=== PATIENT | male | born 1980 | race Caucasian/White ===

== ENCOUNTER 2020-12-23 11:16 | Emergency (ER) | payer OTHER, SELFPAY ==
--- NOTE | 2020-12-23 11:17 | ED.SKABFB ---
HPI - Skin/Abscess/Foreign Bdy General Chief complaint: Skin/Abscess/Foreign Body Stated complaint: Tick bite Time Seen by Provider: 12/23/20 11:30 Source: patient and RN notes reviewed Mode of arrival: ambulatory Limitations: no limitations History of Present Illness HPI narrative: 40-year-old male presents concern for tick bite to his right thigh. [place], Sunday noticed a tick and pulled it off his leg. Reports today he noticed the area was red, slightly tender. Denies any intervention. He denies generalized symptoms such as fever, fatigue, body aches. Denies any drainage from the area. MD complaint: insect bite/sting Related Data Allergies Allergy/AdvReac Type Severity Reaction Status Date / Time No Known Allergies Allergy Verified 12/23/20 11:37 Review of Systems Review of Systems: Narrative: CONSTITUTIONAL: Denies malaise, chills, sweats, or fever. CARDIOVASCULAR: Denies chest pain, palpitations, or edema. RESPIRATORY: Denies cough or dyspnea. GASTROINTESTINAL: Denies abdominal pain, nausea, vomiting SKIN: Reports red, tender area from a tick bite on his right leg MUSCULOSKELETAL: Denies myalgia. NEUROLOGIC: Denies numbness, weakness, or headache. All systems reviewed & are unremarkable except as noted in HPI and below PMFSH Comments At time of signature, agree with nursing past medical, surgical, social and family history. There is no relevant family history pertinent to the presenting complaint Exam Narrative: Exam Narrative: GENERAL: Well-appearing, well-nourished, and in no acute distress. HEAD: Normocephalic, atraumatic. EYES: PERRLA, conjunctivae clear, and EOMI. ENT: Mucous membranes moist. Oropharynx without edema, erythema or lesions. NECK: Supple. No lymphadenopathy CHEST: Clear to auscultation. No respiratory distress. HEART: Regular rate and rhythm. SKIN: Warm, dry. 1.5cm area of erythema, induration with central scab, no foreign body visible or palpable. No surrounding erythema, edema, induration. No drainage noted. NEURO: Alert and oriented x3. PSYCH: Normal mood and affect Course Course Emergency Course: Discussed with patient care of insect bite without antibiotic, using warm compresses. Instructed patient if area worsens, does not improve in the next 24 to 48 hours he should fill the antibiotic and take as directed. Discussed Lyme disease, symptoms of Lyme disease and when to follow-up with primary care provider for further evaluation. Patient is aware of diagnosis, understands and agrees to treatment plan. Anticipatory guidance given. Patient agrees to follow-up as directed and is aware of reasons to seek care at the emergency department. Portions of this record may have been created with voice recognition software Vital Signs Vital signs: Vital Signs Temperature 98.5 F 12/23/20 11:24 Pulse Rate 73 12/23/20 11:24 Respiratory Rate 20 12/23/20 11:24 Blood Pressure 135/82 12/23/20 11:24 Pulse Oximetry 98 12/23/20 11:24 Temperature 98.5 F 12/23/20 11:24 Pulse Rate 73 12/23/20 11:24 Respiratory Rate 20 12/23/20 11:24 Blood Pressure 135/82 12/23/20 11:24 Pulse Oximetry 98 12/23/20 11:24 Reviewed. MDM - Skin/Abscess/Foreign Bdy MDM Narrative Medical decision making narrative: Does not appear at this time to be erythema multiforme, bullous, SJS, TEN; no evidence at this time to suggest RMSF, endocarditis or Lyme disease; patient looks well, nontoxic and is tolerating oral intake; no neurologic signs or symptoms; no headache, photophobia or neck pain; afebrile; appropriate for initial outpatient treatment; discussed the importance of follow-up, patient agrees; question, viral exanthema, contact dermatitis, allergic dermatitis, eczema, urticaria, insect bite. No soft palate or uvula edema, no tongue, lip edema or other mucosal involvement, no respiratory compromise, no stridor, no wheezing, no wheezing, no history of syncope, no hypo
[2020-12-23 11:24] VITALS: BP 135/82; PULSE 73; RESP 20; TEMP 36.9; O2SAT 98
== END 2020-12-23 11:46 | disposition home or self-care (01) ==
PROVIDERS: Emergency Provider Nurse Practitioner; PCP Internal Medicine
DX: S70.361A Insect bite (nonvenomous), right thigh, initial encounter (principal); W57.XXXA Bitten or stung by nonvenomous insect and other nonvenomous arthropods, initial encounter; J45.909 Unspecified asthma, uncomplicated
CPT/HCPCS: 99203; G0463

== ENCOUNTER 2022-07-18 08:17 | Emergency (ER) | payer OTHER, SELFPAY ==
[2022-07-18 08:22] VITALS: BP 139/86; PULSE 74; RESP 20; TEMP 36.6; O2SAT 98
--- NOTE | 2022-07-18 08:58 | ED.URI ---
HPI - URI/Sore Throat General Chief Complaint: Upper Respiratory Infection Stated Complaint: Chest Pain/Asthma Time Seen by Provider: 07/18/22 08:55 Source: patient and RN notes reviewed Mode of arrival: ambulatory Limitations: no limitations History of Present Illness HPI Narrative: 41-year-old male presents with concern for one-week history of wheezing and shortness of breath. He denies cold symptoms, fever, body aches, chills, sweats. He reports he had asthma as a child, he has not had any episodes until recently as an adult. 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 He has not taken any [id number] medications for his symptoms. MD elicited complaint: cough Related Data Allergies Allergy/AdvReac Type Severity Reaction Status Date / Time No Known Allergies Allergy Verified 07/18/22 08:35 Review of Systems Review of Systems: CONSTITUTIONAL: Denies malaise, chills, sweats, or fever. EYES: Denies visual changes, redness, or discharge. ENT: Denies rhinorrhea, congestion, sinus pain, otalgia and sore throat. CARDIOVASCULAR: Denies chest pain, palpitations, or edema. RESPIRATORY: Reports cough, wheezing, dyspnea. GASTROINTESTINAL: Denies abdominal pain, nausea, vomiting, diarrhea SKIN: Denies rash or itching. MUSCULOSKELETAL: Denies myalgia. NEUROLOGIC: Denies headache. All systems reviewed & are unremarkable except as noted in HPI and below PMFSH Comments At time of signature, agree with nursing past medical, surgical, social and family history. There is no relevant family history pertinent to the presenting complaint Exam Narrative: GENERAL: Well-appearing, well-nourished, and in no acute distress. HEAD: Normocephalic EYES: PERRLA, conjunctivae clear ENT: Nares clear, no discharge. Mucous membranes moist. TM pearly storm with sharp light reflex bilaterally; no tragal tenderness. Oropharynx not erythematous without lesions. Tonsils not enlarged and without exudate, no drooling, no hoarseness, no trismus, uvula midline. NECK: Supple. No lymphadenopathy CHEST: Expiratory wheeze throughout, otherwise Clear to auscultation, breath sounds equal. No rhonchi, rales, or stridor. No respiratory distress, speaks in full sentences. HEART: Regular rate and rhythm. No murmur heard. SKIN: Warm, dry, no rash. NEURO: Alert and oriented x3. PSYCH: Normal mood and affect Course Course Emergency Course: Patient is aware of diagnosis, understands and agrees to treatment plan. Anticipatory guidance given. Patient agrees to follow-up as directed and is aware of reasons to seek care at the emergency department. Portions of this record may have been created with voice recognition software Level of Care: Express Care Visit Vital Signs Vital signs: Vital Signs Temperature 97.9 F 07/18/22 08:22 Pulse Rate 74 07/18/22 08:22 Respiratory Rate 20 07/18/22 08:22 Blood Pressure 139/86 07/18/22 08:22 Pulse Oximetry 98 07/18/22 08:22 Oxygen Delivery Room Air 07/18/22 08:22 Temperature 97.9 F 07/18/22 08:22 Pulse Rate 74 07/18/22 08:22 Respiratory Rate 20 07/18/22 08:22 Blood Pressure 139/86 07/18/22 08:22 Pulse Oximetry 98 07/18/22 08:22 Oxygen Delivery Room Air 07/18/22 08:22 Reviewed. MDM - URI/Sore Throat MDM Narrative Medical decision making narrative: Differential diagnosis considered: Asthma exacerbation, COPD, Soriano virus, strep pharyngitis, allergic rhinitis, upper respiratory tract infection, sinusitis, rhinosinusitis, nasopharyngitis. viral pharyngitis, otitis media, otitis externa, pneumonia, bronchitis, viral cough syndrome, viral syndrome, and influenza. Exam findings show no acute concerns or changes; patient is non-toxic appearing and is in no distress. Patient is appropriate for outpatient treatment and follow-up. Lab Data Attestation: I reviewed the patient's lab results. Critical Care Time Cr
== END 2022-07-18 09:05 | disposition home or self-care (01) ==
PROVIDERS: Emergency Provider Nurse Practitioner
DX: R06.2 Wheezing (principal); R05.9 Cough, unspecified
CPT/HCPCS: 99213; G0463

== ENCOUNTER 2025-06-26 13:19 | Emergency (ER) | payer OTHER, SELFPAY ==
--- OUTSIDE RECORDS SUMMARY | 2015-05-24 09:00 | XMS_ITS | Continuity of Care Document ---
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 Name Role Phone Jairo Verdugo MD Unavailable Unavailable Allergies, Adverse Reactions, Alerts Substance Reaction Status Criticality No Known Allergies Active No Inform ation Procedures Procedure Date Office/outpatient Visit, [facility] Advance Directives Directive Yes / No Effective Date File Name No Information Encounters Encounter Description Practice Location Reason(s) For Visit Diagnoses Date Provider Providers Copied on Encounter Office/outpat ient Visit, [facility], [address], [place], [place], [id number], [place] tel:[phone] [address] Professional blurry vision (chief complaint) Punctate keratitis, left eye 0 [phone] Lucina Gill. [address], [address], [place], [place], [address], [place]. tel:[phone] Family History Family Member Type Diagnosis Age At Onset No Information Payers Payer name Insurance type Covered democrat ID Authorolia jeb(s) Woody Huber (RIA) CI [id number] Social History Type Description Quantity Date Captured Comments Alcohol Use Details No Caffeine Use Details Tobacco Use Status No Information Smoking Status Never smoker Non-Smoking Tobacco Use Details : No Details Available : No Details Available Sex Male Chief Complaint And Reason For Visit From encounter dated '05/24/2015 15:00'. blurry vision (chief complaint). Description: The 34 year old male presents for a WIE. Patient states last night his young son poked him in OS. Patienty states vision is blurry and doubled OS. Reason For Referral Reason For Referral No Information History Of Present Illness Encounter Date Complaint History Of Prese nt Illness blurry vision The 34 year old male presents for a WIE. Patient states last night his young son poked him in OS. Patienty states vision is blurry and doubled OS. Functional Status Date Functional Assessmen t No Information Instructions Date Instruction Additional Infor mation as needed Related to Punct ate keratitis, left eye Impression/Plan - Di scussed dx in detail with patient. Patient understands SPK will resolve on its own. Start artificial tears prn for comfort. Return to clinic as needed. Related to Punctate keratitis, left eye Follow up - as needed Related to Punctate keratitis, left eye Assessments Type Assessment Date assessment Punctate keratitis, left eye May impression Punctate keratitis, left eye: H1 6.142 Patient Care Teams Name Effective Dates (start - stop) Status Members No Information
--- OUTSIDE RECORDS SUMMARY | 2015-05-24 09:00 | XMS_ITS | Continuity of Care Document ---
Author Organization [facility] Address [address] [place] [address] Phone Care Team Providers Care Import Coordinator Name Role Phone Jairo Verdugo MD Unavailable Unavailable Allergies, Adverse Reactions, Alerts Substance Reaction Status Criticality No Known Allergies Active No Inform ation Procedures Procedure Date Office/outpatient Visit, [facility] Advance Directives Directive Yes / No Effective Date File Name No Information Encounters Encounter Description Practice Location Reason(s) For Visit Diagnoses Date Provider Providers Copied on Encounter Office/outpat ient Visit, [facility], [address], [place], [place], [id number], [place] tel:[phone] [address] Professional blurry vision (chief complaint) Punctate keratitis, left eye 0 [phone] Lucina Gill. [address], [address], [place], [place], [id number], [place]. tel:[phone] Family History Family Member Type Diagnosis Age At Onset No Information Payers Payer name Insurance type Covered alliance party ID Authorolia jeb(s) Woody Huber (RIA) CI [id number] Social History Type Description Quantity Date Captured [...]
[2025-06-26 13:24] VITALS: BP 133/74; PULSE 88; RESP 18; TEMP 36.9; O2SAT 96
--- OUTSIDE RECORDS SUMMARY | 2025-06-26 13:24 | XMS_ITS | Clinical Summary ---
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 Pt not on meds that could cause. Has albuterol inhaler which can help decrease If continues to be elevated, will consider neb breathing treatment in clinic 20min to help correct, vs kayexalate. EKG in clinic if remains elevated. Class 1 obesity due to exces s calories without serious comorbidity with body mass index (BMI) of 34.0 to 34.9 in adult 07/29/2024 Assessment & Plan (08/29/2024 6:09 PM AERONAUTICAL ENGINEERING TEACHER): Body mass index is 35.36 kg/m . CLASSIFICATION Class 1 obesity: 30 to less than 35 Wt Readings from Last 3 Encounters: 08/27/24 107 kg (236 lb) 07/29/24 104.8 kg (231 lb) 07/10/24 98 kg (216 lb) - Etiology: Lifestyle and diet - Medications: None Plan - Encouraged pt to continue with lifestyle modification: Diet/exercise, food tracking apps, diary to reflect on relationship with food. - Have educated patient that Mediterranean diet is widely accepted as the most balanced diet for both weight loss and sustained weight loss. Handout given. - Education given on risk associated with elevated BMI - Will set up follow up apt to discuss lifestyle modification, nutrition services, weight loss clinic, medications, CBT - Labs: CBC, CMP, TSH, A1c, lipids as needed to rule out medical causes. - Referrals today: None w - BMI Follow-up includes: nutrition counseling, exercise counseling, and education provided. Assessment & Plan (07/29/2024 11:10 AM AERONAUTICAL ENGINEERING TEACHER): Body mass index is 34.61 kg/m . CLASSIFICATION Class 1 obesity: 30 to less than 35 Wt Readings from Last 3 Encounters: 07/29/24 104.8 kg (231 lb) 07/10/24 98 kg (216 lb) 05/02/17 101.5 kg (223 lb 11.2 oz) - Etiology: Lifestyle and diet - Medications: None Plan - Encouraged pt to continue with lifestyle modification: Diet/exercise, food tracking apps, diary to reflect on relationship with food. - Have educated patient that Mediterranean diet is widely accepted as the most balanced diet for both weight loss and sustained weight loss. Handout given. - Education given on risk associated with elevated BMI - Will set up follow up apt to discuss lifestyle modification, nutrition services, weight loss clinic, medications, CBT - Labs: CBC, CMP, TSH, A1c, lipids as needed to rule out medical causes. - Referrals today: None w - BMI Follow-up includes: nutrition counseling, exercise counseling, and education provided. Annual physical exam 07/29/2024 Assessment & Plan (07/29/2024 11:23 AM AERONAUTICAL ENGINEERING TEACHER): Pt presents for Annual Health exam: Today patient is: Stable - Have discussed sig PMH, Current meds/treatments, labs, images/test, and changes made by specialists if following. - ADL's, SDoH, and Safety discussed. - Education on lifestyle modification diet, exercise, wellness with handouts given as appropriate. - Age-appropriate and annual Vaccinations discussed: Influenza and Tdap at next visit - Age approximate cancer screening discussed and referrals sent: Colon cancer screening starting make sure. - Pt has requested STI screening: No - Cessation/avoidance counseling on Tobacco/Vape/MJ/ETOH/Drugs and the health risks associated with use and benefits of quitting or never starting. Pt will think about my offer. - Basic screening labs today: CBC w/o dif , CMP , Lipid Nuno, A1c, and TSH - Will continue will annual exam. Current smoker 07/29/2024 Assessment & Plan (08/27/2024 8:46 AM AERONAUTICAL ENGINEERING TEACHER): Current daily tobacco user: 5-7 cigs daily Pack years: <10 Wanting to quit: yes, and would like to try Wellbutrin after conversation. Previous Methods/Attempts: Has tried Chantix in the past but discontinued due to irritability and nightmares. Plan - Tobacco use will be reassessed at the next regular appointment. - Quit Smoking: https://smokefree.gov/ - Smoking cessation counseling was provided: 15 minutes of smoking cessation counseling given. - Start Wellbutrin 300 mg with shared decision making. Have educated pt on side effects and directions on how to start taking. Will go slow due to bad response to Chantix. - Continue: To try and cut back, stop. - Follow up if 4 weeks. Nicotine replacement therapy (NRT) is the most commonly used family of quit smoking medications. NRT reduces withdrawal feelings by giving you a small controlled amount of nicotine?but none of the other dangerous chemicals found in cigarettes. This small amount of nicotine helps satisfy your craving for nicotine and reduces the urge to smoke. NRT can t do all the work. It can help with withdrawal and cravings. But it won t completely take away the urge to smoke. Even if you use NRT to help you stop smoking, quitting can still be hard. Combining NRT with other strategies can improve your chances of quitting and staying quit. Strategies to quit: To give yourself the best chance for success, explore other quit methods you can combine with medication. Also think about: - Developing a quit plan. Using quit programs such as SmokefreeTXT or calling a quitline. Using the [employer] yue for tips and inspiration to help you be smokefree. Prepare, Reduce creavings and Triggers, Reduce stress, Get Active, Eat Healthy - Gum, Patches, Inhaler, lozenges, nasal spray or medications like Wellbutrin, Chantix - Remind yourself of the rewards of quitting to help yourself stay on track: Fun facts Most will attempt quitting 10 to 13 times before being successful: Just because you were not successful last time does not mean this time you will not be. Keep going, start back where you left off on your quitting journy, don't go back to your daily smoking habit. 20 minutes: heart rate, blood pressure drop 12 hours: carbon monoxide in blood stream drops to normal 2 weeks-3 months: circulation, lung function improve; heart attack risk begins to drop 1-9 months: cough less, breathe easier 1 year: risk of coronary heart disease cut in half 2-5 years: risk of cancer of mouth, throat, esophagus, bladder cut in half; stroke risk is reduced to that of a nonsmoker 10 years: half as likely to from lung cancer; risk of kidney or pancreatic cancer decreases 15 years: risk of coronary heart disease same as non-smoker s risk EXTRA MONEY. Assessment & Plan (07/29/2024 11:11 AM AERONAUTICAL ENGINEERING TEACHER): Current daily tobacco user: 5-7 cigs daily Pack years: <10 Wanting to quit: yes Previous Methods/Attempts: Has tried Chantix in the past but discontinued due to irritability and nightmares. Plan - Tobacco use will be reassessed at the next regular appointment. - Quit Smoking: https://smokefree.gov/ - Smoking cessation counseling was provided: 10 minutes of smoking cessation counseling given. - Consider: Starting Wellbutrin, pt will do research and discuss with . - Continue: To try and cut back, stop. Nicotine replacement therapy (NRT) is the most commonly used family of quit smoking medications. NRT reduces withdrawal feelings by giving you a small controlled amount of nicotine?but none of the other dangerous chemicals found in cigarettes. This small amount of nicotine helps satisfy your craving for nicotine and reduces the urge to smoke. NRT can t do all the work. It can help with withdrawal and cravings. But it won t completely take away the urge to smoke. Even if you use NRT to help you stop smoking, quitting can still be hard. Combining NRT with other strategies can improve your chances of quitting and staying quit. Strategies to quit: To give yourself the best chance for success, explore other quit methods you can combine with medication. Also think about: - Developing a quit plan. Using quit programs such as SmokefreeTXT or calling a quitline. Using the [employer] yue for tips and inspiration to help you be smokefree. Prepare, Reduce creavings and Triggers, Reduce stress, Get Active, Eat Healthy - Gum, Patches, Inhaler, lozenges, nasal spray or medications like Wellbutrin, Chantix - Remind yourself of the rewards of quitting to help yourself stay on track: Fun facts Most will attempt quitting 10 to 13 times before being successful: Just because you were not successful last time does not mean this time you will not be. Keep going, start back where you left off on your quitting journy, don't go back to your daily smoking habit. 20 minutes: heart rate, blood pressure drop 12 hours: carbon monoxide in blood stream drops to normal 2 weeks-3 months: circulation, lung function improve; heart attack risk begins to drop 1-9 months: cough less, breathe easier 1 year: risk of coronary heart disease cut in half 2-5 years: risk of cancer of mouth, throat, esophagus, bladder cut in half; stroke risk is reduced to that of a nonsmoker 10 years: half as likely to from lung cancer; risk of kidney or pancreatic cancer decreases 15 years: risk of coronary heart disease same as non-smoker s risk EXTRA MONEY. Decreased libido 07/29/2024 Assessment & Plan (08/29/2024 6:19 PM AERONAUTICAL ENGINEERING TEACHER): Patient to make follow-up appointment to discuss hypogonadism and decreased energy No red flag symptoms reported CBC, CMP, lipid panel, TSH, A1c: all with in normal levels. T levels and discuss TRT at follow up visit. Assessment & Plan (07/29/2024 10:00 AM AERONAUTICAL ENGINEERING TEACHER): Patient to make follow-up appointment to discuss hypogonadism and decreased energy No red flag symptoms reported CBC, CMP, lipid panel, TSH, A1c T levels and discuss TRT at follow up visit. History of wheezing 07/29/2024 Assessment & Plan (08/27/2024 8:47 AM AERONAUTICAL ENGINEERING TEACHER): Chronic Family history of asthma, diagnosed with asthma as a kid. Triggers: Seasonal, environment, exertion in cold weather, smoking. Medications: None Plan - Will get formal PFT evaluation - Consider Symbicort based on PFTs and picture - Start Albuterol q4-6 prn - Advised stop smoking, patient to think about starting Wellbutrin - Consider starting Claritin/Zyrtec daily Assessment & Plan (07/29/2024 11:22 AM AERONAUTICAL ENGINEERING TEACHER): Chronic Family history of asthma, diagnosed with asthma as a kid. Triggers: Seasonal, environment, exertion in cold weather, smoking. Medications: None Plan - Will get formal PFT evaluation - Consider Symbicort based on PFTs and picture - Advised stop smoking, patient to think about starting Wellbutrin - Consider starting Claritin/Zyrtec daily Atopic rhinitis 01/03/2014 Overview (11/23/2016): ALLERGIC RHINITIS NOS Assessment & Plan (07/29/2024 10:01 AM AERONAUTICAL ENGINEERING TEACHER): Chronic, stable Currently Not taking daily medications Most likely related to environment and allergies and smoking Advised patient to stop smoking We will continue to follow and start medications as needed Resolved Problems Problem Noted Date Diagnosed Date Resolved Date Class 1 obesity 07/29/2024 07/29/2024 SOB (shortness of breath) on exertion 07/29/2024 07/29/2024 Immunizations Immunization Administration Dates Next Due Influenza, Unspecified 07/08/2024(Deferr ed: Patient Refused),06/06/2023(Deferred: Patient Refused) Surgical History Surgery Date Site/Laterality Comments APPENDECTOMY 04/19/2017 Laparoscopic appendectomy Medical History Medical History Date Comments Asthma Asthma Family History Medical History Relation Name Comments Other Other 2 Alive and well; Cancer Paternal Grandfather Colon cancer Paternal Grandfather Relation Name Status Comments Other 1 Alive Other 2 Paternal Grandfather Social History Tobacco Use Types Packs/Day Years Used Date Smoking Tobacco: Some Days Cigarettes 0.5 25.8 Started: 1999 Smokeless Tobacco: Current Tobacco Cessation:Ready to Q uit: Not Asked; Counseling Given: Not Answered Alcohol Use Standard Drinks/Week Comments Yes 4 (1 standard drink = 0.6 oz pur e alcohol) weekends PHQ-2 Answer Date Recorded PHQ-2 Total Score (If total score is 3 or more points, staff should administer the PHQ-9) 1 07/29/2024 PHQ-9 Answer Date Recorded PHQ-9 Total Score 7 07/29/2024 Sex and Gender Information Value Date Recorded Sex Assigned at Not on file Legal Sex Male 5:37 AM AERONAUTICAL ENGINEERING TEACHER Gender Identity Not on file Sexual Orientation Not on file Last Filed Vital Signs Vital Sign Reading Time Taken Comments Blood Pressure 118/86 09/22/2024 8:29 AM AERONAUTICAL ENGINEERING TEACHER Pulse 56 09/22/2024 8:29 AM AERONAUTICAL ENGINEERING TEACHER Temperature 36.8 C (98.3 F) 09/22/2024 8:29 AM AERONAUTICAL ENGINEERING TEACHER Respiratory Rate 18 09/22/2024 8:29 AM AERONAUTICAL ENGINEERING TEACHER Oxygen Saturation 97% 07/10/2024 9:31 AM AERONAUTICAL ENGINEERING TEACHER Inhaled Oxygen Concentration - - Weight 105.7 kg (233 lb) 09/22/2024 8:29 AM AERONAUTICAL ENGINEERING TEACHER Height 174 cm (5' 8.5) 09/22/2024 8:29 AM AERONAUTICAL ENGINEERING TEACHER Body Mass Index 34.91 09/22/2024 8:29 AM AERONAUTICAL ENGINEERING TEACHER Plan of Treatment Health Maintenance Due Date Last Done Comments Colon Cancer Screening-Colonoscopy 1979 Hepatitis C Screening 1979 DTaP/Tdap/Td Vaccine (1 - Tdap) 12/19/1990 Varicella Vaccines (1 of 2 - 13+ 2-dose series) 12/19/1992 Hepatitis B Screening 12/19/1997 Pneumococcal vaccine <65 (1 of 2 - PCV) 12/19/1998 HPV Vaccines (1 - 3-dose SCDM series) 12/19/2006 Influenza Vaccine (#1) 2025 Depression Screening 07/29/2025 07/29/2024, 07/29/20 24 Regular Well Visit/Exam 18-64 07/29/2025 07/29/2024 Insurance [facility] H[facility]/PPO Address: [facility] [address] [place] [address] Care Teams Speech Language Pathology Assistant Relationship Specialty Start Date End Date Arsh Navarro MD [address] [address] PCP - General Family Medicine 07/29/24
--- NOTE | 2025-06-26 13:59 | ED_ITS ---
HPI - Eye Problem General Chief complaint: Eye Problems Stated complaint: right eye Time Seen by Provider: 06/26/25 14:10 Source: patient, RN notes reviewed and old records reviewed Mode of arrival: ambulatory Limitations: no limitations History of Present Illness HPI Narrative: 44 year old male presents to [facility] with complaints of right eye redness which started this morning, feelings like foreign body in eye thinks like eyelash or dog hair, denies any known, material flying into right eye. Patient reports no sharp pain to his right or any visual changes or any drainage from his right eye. Patient has increased watering from his eye and he does have photophobia. Visual acuity right eye 20/50. Left eye 20/40 without correction. Patient reports that he irrigated his eye but nothing improved no visible foreign body seen. MD chief complaint: eye redness, foreign body (feeling of foreign body) and other (watering and photophobia) Onset (ago): hour(s) (this morning) Onset description: sudden (this morning) Duration: constant Location: right eye Eye Symptoms: redness, foreign body sensation, photophobia and other (watering) Severity scale (1-10): 3 Treatments Prior to Arrival: irrigated eye Related Data Allergies Allergy/AdvReac Type Severity Reaction Status Date / Time No Known Allergies Allergy Verified 06/26/25 13:21 Review of Systems Review of Systems: CONSTITUTIONAL: Denies fever, chills, or sweats. EYES: Denies visual changes. Reports redness,, irritation, no discharge increased watering and feeling of foreign body sensation. ENT: Denies rhinorrhea, congestion, sore throat, or otalgia. CARDIOVASCULAR: Denies chest pain, palpitations, or edema. RESPIRATORY: Denies cough or dyspnea. SKIN: Denies rash or itching. NEUROLOGIC: Denies headache All systems reviewed & are unremarkable except as noted in HPI and below PMFSH Past Medical History Medical History (Updated 06/27/25 @ 18:32 by Kelle Crowley APRN) Asthma Surgical History Surgical History (Updated 06/27/25 @ 17:56 by Kelle Crowley APRN) Hx of appendectomy Social History Social History (Updated 06/27/25 @ 17:58 by Kelle Crowley APRN) Alcohol intake: current Alcohol use details: social Substance use type: does not use Living arrangements: with family Gender identity (if verbalized by the patient): Male Comments At time of signature, agree with nursing past medical, surgical, social and family history. There is no relevant family history pertinent to the presenting complaint Exam Narrative: GENERAL: Well-appearing, well-nourished, and in no acute distress. HEAD: Normocephalic, atraumatic. EYES: PERRLA and EOMI. Right eye and left eye upper and lower eyelids unremarkable. No periorbital cellulitis noted. Right sclera reddened and increased watering from right eye, denies any sharp pain to eye is photophobic, see procedure note ENT: Nares clear, no rhinorrhea or epistaxis. Mucous membranes moist. NECK: Supple.no lymphadenopathy CHEST: Clear to auscultation. No respiratory distress. no cough or congestion noted SAO2 96% on room air HEART: Regular rate and rhythm. No murmur heard. Normal peripheral pulses. SKIN: Warm, dry, no rash. NEURO: No focal deficits. Alert and oriented x3. Course Course Emergency Course: Patient is aware of diagnosis, understands and agrees to treatment plan. Anticipatory guidance given. Patient agrees to follow-up as directed and is aware of reasons to seek care at the emergency department. Portions of this record may have been created with voice recognition software Level of Care: Express Care Visit Vital Signs Vital signs: Vital Signs Temperature 36.9 C 06/26/25 13:24 Pulse Rate 88 06/26/25 13:24 Respiratory Rate 18 06/26/25 13:24 Blood Pressure 133/74 06/26/25 13:24 Pulse Oximetry 96 06/26/25 13:24 Oxygen Delivery Room Air 06/26/25 13:24 Temperature 36.9 C 06/26/25 13:24 Pulse Rate 88 06/26/25 13:24 Respiratory Rate 18 06/26/25 13:24 Blood Pressure 133/74 06/26/25 13:24 Pulse Oximetry 96 06/26/25 13:24 Oxygen Delivery Room Air 06/26/25 13:24 Reviewed Transfer Transfered to: [facility] Transportation: Other (private car) Transfer rationale: small embedded material in right cornea at 9 o'clock and corneal abrasion right eye. Accepting physician: Dr Wells Transfer comments: To [facility] per private vehicle Procedures FB Removal Eye Foreign Body #1: Foreign Body Removal Date: 06/26/25 Foreign Body Removal Time: 14:20 Time Out performed: Yes Location: eye (R) Topical anesthetic used: tetracaine (0.5% 2 drops) Foreign body: other (unable to determine) Evidence of corneal penetration: Yes Technique: irrigation, catheter (attemted use of plastic sheath off of IV catheter unable to remove foreign body), eye wash bottle and cotton tip swab Procedure performed under: direct visualization with magnification and other (Khan lamp) Post-procedure medication: topical anesthetic (Tetracaine 0.5% 2 drops) and other Patient tolerated procedure: well Complications: incomplete foreign body removal Foreign Body Removal Narrative: right eye localized with Tetracaine 0.5% solution with 2 drops instilled. Examined eye using magnification with no visualized foreign body,Cotton tip swab under eye lids and over eye with no foreign body,irrigated with eye wash solution. Right eye stained using Fluorescein stain and KHAN lamp and abrasion to right eye 1/4 area of cornea at 9 0'clock with small embedded foreign body, attempted removal with small plastic catheter and cotton tip applicator unable to remove. Eye washed with sterile eye wash solution to remove stain and 2 drops of Tetracaine0.5% instilled as comfort measure. MDM - Eye Problem MDM Narrative Medical decision making narrative: Consideration of the following conditions may be warranted for the presenting problem, they are not final diagnoses: Bacterial conjunctivitis, allergic conjunctivitis, viral conjunctivitis, foreign body, blepharitis, chalazion, hordeolum, corneal abrasion.? Exam findings shows acute concern for foreign body embedded in right lateral cornea at 9o'clock with cornea abrasion unable to remove foreign body to [facility] for further evaluation, No sharp pain to right eye or visual changes. Report called to Max charge nurse at [facility] with Dr Wells accepting physician and ophthalmology will see in ED. Previously called [facility] and unable to get appointment in any of their facility today. Differential Diagnosis Differential diagnosis: Likely corneal abrasion, conjunctivitis, subconjunctival hemorrhage and other (embedded foreign body right eye at 9 0'cloce) Medical Records Attestation: I reviewed the patient's medical records. Critical Care Time Critical Care Time Critical Care Time: No Discharge Plan Discharge Clinical Impression: Embedded foreign body Corneal abrasion Qualifiers: Encounter type: initial encounter Laterality: right Qualified Code(s): S05.01XA - Injury of conjunctiva and corneal abrasion without foreign body, right eye, initial encounter Patient Disposition: Acute Care Hospital Condition: Stable Patient Language: Yakut Prescriptions: No Action albuterol sulfate 90 mcg/actuation HFA aerosol inhaler 2 puff INHALATION QID PRN (Reason: shortness of breath or wheezing) Qty: 8.5 0RF Follow-up/Referrals: Ramon,Arsh Brown MD [Primary Care Provider, Unknown] Time of Disposition: 15:03 Quality [place] Coma Scale Eyes: Open Verbal: Oriented and Alert Motor: Follows Commands [place] Coma Total Score: 15
[2025-06-26] MEDS: FLUORESCEIN SOD 1 MG/STRIP RIGHT EYE (14:18)
[2025-06-26] MEDS: DACRIOSE EYE IRRIGATION 118 ML BOTTLE RIGHT EYE (14:19)
[2025-06-26] MEDS: TETRACAINE HCL 0.5% OPHTH SOLN 4 ML BTL RIGHT EYE (14:19)
== END 2025-06-26 15:10 | disposition short-term general hospital (02) ==
LOC: EXPBETH 13:21
PROVIDERS: Emergency Provider Registered Nurse; PCP Family Medicine
DX: T15.01XA Foreign body in cornea, right eye, initial encounter (principal); W44.9XXA Unspecified foreign body entering into or through a natural orifice, initial encounter; J45.909 Unspecified asthma, uncomplicated
CPT/HCPCS: 65222; 99213; A9270; G0463